=== PATIENT | female | born 1965 | race Caucasian/White ===

== ENCOUNTER 2016-12-19 16:06 | Inpatient (IN) | payer BC ==
[2016-12-19] VITALS (11 sets, daily range): BP systolic 100–128; BP diastolic 61–99; PULSE 66–159; RESP 14–24; TEMP 98–98.3; O2SAT 96–99
--- NOTE | 2016-12-19 16:23 | PD ---
HPI Chief Complaint: elevated heart rate Time Seen by Provider: 16:12 Travel History International Travel<30 days: No Contact w/Intl Traveler<30days: No History of Present Illness HPI 51-year-old female presents to the emergency department for evaluation of elevated heart rate. Patient reports she was diagnosed with atrial fibrillation approximately 2 months ago. She reports history of GA, A. fib, mechanical valve. She is currently metoprolol, Coumadin. Patient states that she went to [facility] yesterday. She was given dose of IV Cardizem and then discharged. However, her heart rate has increased again. Patient denies any chest pain or shortness breath. No headache. No fevers or chills. No abdominal pain. No nausea, vomiting, diarrhea. She states that she feels fine, just knows that her heart rate is increased. FORMERLY [facility], [facility] Social History Alcohol Use: No Tobacco Use: No Substance Use: No Allergies-Medications (Allergen,Severity, Reaction): Coded Allergies: No Known Allergies (Unverified , 12/19/16) Reported Meds & Prescriptions Reported Meds & Active Scripts Active Reported Bumetanide 1 Mg Tab 1 Mg PO MOWEDFRI Rythmol SR (Propafenone HCl) 225 Mg Cap 225 Mg PO Q12HR Metoprolol Tartrate 25 Mg Tab 25 Mg PO DAILY Coumadin (Warfarin) 5 Mg Tab 5 Mg PO MOWEDFRISAT Coumadin (Warfarin) 6 Mg Tab 6 Mg PO [place] Review of Systems Except as stated in HPI: all other systems reviewed are Neg Physical Exam Narrative GENERAL: Well-nourished, well-developed female patient, ambulatory. Afebrile SKIN: Focused skin assessment warm/dry. HEAD: Normocephalic. Atraumatic. EYES: No scleral icterus. No injection or drainage. NECK: Supple, trachea midline. No JVD or lymphadenopathy. CARDIOVASCULAR: Irregular rhythm, tachycardic, without murmurs, gallops, or rubs. Bilateral radial and pedal pulses are 2+. RESPIRATORY: Breath sounds equal bilaterally. No accessory muscle use. Lungs sounds are clear to auscultation GASTROINTESTINAL: Abdomen soft, non-tender, nondistended. MUSCULOSKELETAL: No cyanosis, or edema. BACK: Nontender without obvious deformity. No CVA tenderness. Data Data Last Documented VS Vital Signs Date Time Temp Pulse Resp B/P (MAP) Pulse Ox O2 Delivery O2 Flow Rate FiO2 12/19/16 18:07 82 22 106/72 (83) 97 Room Air 12/19/16 16:08 98.0 Orders Orders Electrocardiogram (12/19/16 ) Basic Metabolic Panel (Bmp) (12/19/16 16:18) Ckmb (Isoenzyme) Profile (12/19/16 16:18) Complete Blood Count With Diff (12/19/16 16:18) Magnesium (Mg) (12/19/16 16:18) Prothrombin Time / Inr (Pt) (12/19/16 16:18) Act Partial Throm Time (Ptt) (12/19/16 16:18) Troponin I (12/19/16 16:18) Ecg Monitoring (12/19/16 16:18) Bilateral Bp Monitoring (12/19/16 16:18) Iv Access Insert/Monitor (12/19/16 16:18) Oximetry (12/19/16 16:18) Oxygen Administration (12/19/16 16:18) Diltiazem Inj (Cardizem Inj) (12/19/16 16:45) Diltiazem Inj (Cardizem Inj) (12/19/16 17:00) Admit Order (Ed Use Only) (12/19/16 18:11) Labs Laboratory Tests Test 12/19/16 16:25 White Blood Count 7.6 TH/MM3 Red Blood Count 5.33 MIL/MM3 Hemoglobin 16.3 GM/DL Hematocrit 48.8 % Mean Corpuscular Volume 91.7 FL Mean Corpuscular Hemoglobin 30.6 PG Mean Corpuscular Hemoglobin Concent 33.4 % Red Cell Distribution Width 14.9 % Platelet Count 194 TH/MM3 Mean Platelet Volume 10.7 FL Neutrophils (%) (Auto) 70.3 % Lymphocytes (%) (Auto) 17.4 % Monocytes (%) (Auto) 9.8 % Eosinophils (%) (Auto) 1.4 % Basophils (%) (Auto) 1.1 % Neutrophils # (Auto) 5.4 TH/MM3 Lymphocytes # (Auto) 1.3 TH/MM3 Monocytes # (Auto) 0.7 TH/MM3 Eosinophils # (Auto) 0.1 TH/MM3 Basophils # (Auto) 0.1 TH/MM3 CBC Comment DIFF FINAL Differential Comment Prothrombin Time 36.9 SEC Prothromb Time International Ratio 3.2 RATIO Activated Partial Thromboplast Time 42.7 SEC Blood Urea Nitrogen 11 MG/DL Creatinine 0.86 MG/DL Random Glucose 92 MG/DL Calcium Level 9.0 MG/DL Magnesium Level 1.8 MG/DL Sodium Level 137 MEQ/L Potassium Level 3.8 MEQ/L Chloride Level 104 MEQ/L Carbon Dioxide Level 26.2 MEQ/L Anion Gap 7 MEQ/L Estimat Glomerular Filtration Rate 69 ML/MIN Total Creatine Kinase 93 U/L Troponin I 0.03 NG/ML [facility] Medical Decision Making Medical Screen Exam Complete: Yes Emergency Medical Condition: Yes Medical Record Reviewed: Yes Differential Diagnosis A. fib with RVR versus electrolyte abnormality versus ACS Narrative Course 51-year-old female presents to the emergency department for evaluation of elevated heart rate, history of A. fib. EKG shows atrial fibrillation, heart rate 145. No STEMI. CBC, BMP, CK, troponin, PTT, PT/INR are ordered and pending. CBC shows hemoglobin 16.3, hematocrit 48.8. CK is 93, troponin is 0.03. BMP shows no acute abnormality. PTT is 42.7. PTT is 36.9, INR is 3.2. Patient is given Cardizem 0.25 mg/kg. Patient's heart rate remains between 90 and 135. Patient started Cardizem drip at 2.[address] Dailey accepted admission. Diagnosis Primary Impression: Atrial fibrillation with RVR Admitting Information Admitting Physician Requests: Diane Marques Dec 19, 2016 16:23
[2016-12-19 16:36] LABS: AUTOMATED NEUTROPHIL # 5.4 TH/MM3 (1.8-7.7); BASOPHIL # 0.1 TH/MM3 (0-0.2); BASOPHIL % 1.1 % (0.0-2.0); EOSINOPHIL # 0.1 TH/MM3 (0-0.4); EOSINOPHIL % 1.4 % (0.0-4.0); HEMATOCRIT 48.8 % (35.0-46.0); HEMO FLAGS DIFF FINAL; LYMPH % 17.4 % (9.0-44.0); LYMPHOCYTE # 1.3 TH/MM3 (1.0-4.8); MEAN CELL VOLUME 91.7 FL (80.0-100.0); MEAN CORPUSCULAR HEMOGLOBIN 30.6 PG (27.0-34.0); MEAN CORPUSCULAR HGB CONC 33.4 % (32.0-36.0); MONO % 9.8 % (0.0-8.0); NEUT % 70.3 % (16.0-70.0); PLATELET COUNT 194 TH/MM3 (150-450); RED BLOOD COUNT 5.33 MIL/MM3 (4.00-5.30); RED CELL DISTRIBUTION WIDTH 14.9 % (11.6-17.2); WHITE BLOOD COUNT 7.6 TH/MM3 (4.0-11.0)
[2016-12-19] MEDS ORDERED: BUME1TAB PO (16:37)
[2016-12-19] MEDS ORDERED: COUM6TAB PO (16:37)
[2016-12-19] MEDS ORDERED: RYTH225C PO (16:37)
[2016-12-19] MEDS ORDERED: COUM5TAB PO (16:37)
[2016-12-19] MEDS ORDERED: METO25TA3 PO (16:37)
[2016-12-19 16:43] LABS: APTT (PATIENT) 42.7 SEC (24.3-30.1); INTERNATIONAL NORMALIZED RATIO 3.2 RATIO; PROTHROMBIN TIME - PATIENT 36.9 SEC (9.8-11.6)
[2016-12-19] MEDS ORDERED: DILTIAZEM HCL 25 MG/5 ML VIAL IV PUSH ONE (16:45)
[2016-12-19] MEDS ORDERED: DILTIAZEM INJ 125 MG in SODIUM CHLORIDE 0.9% INJ 100 ML IV PRN (17:00)
[2016-12-19 17:13] LABS: BICARBONATE 26.2 MEQ/L (21.0-32.0); MAGNESIUM 1.8 MG/DL (1.5-2.5); POTASSIUM 3.8 MEQ/L (3.5-5.1)
[2016-12-19] MEDS ORDERED: SODIUM CHLORIDE 0.9% FLUSH 10 ML FLUSH IV FLUSH PRN (18:45)
--- NOTE | 2016-12-19 18:56 | HHI.HP ---
HPI Service [facility] Primary Care Physician No Primary Care Physician Admission Diagnosis atrial fibrillation with RVR Diagnoses: Travel History International Travel<30 Days: No Contact w/Intl Traveler <30 Da: No Traveled to Known Affected Are: No History of Present Illness Patient 51-year-old female with a known history of atrial fibrillation diagnosed by her primary building architectural designer in [place] over the last 3 months. She was placed on Rythmol and also has a history of mechanical mitral valve including Coumadin. Patient is also on metoprolol. Family she went to the emergency room at [facility] yesterday was discharged from the ER after a dose of IV Cardizem. Her rate has been high all day and the patient came to the emergency room here for further evaluation. She notes no nausea or vomiting or chest pain and here for heart rates been in the 120s. EKG on my review shows atrial fibrillation without ischemic changes. Patient notes no fevers or chills. She is able to turn without difficulty. She does smoke quite a bit and her hemoglobin is high. Patient's been recommended for further treatment due to uncontrolled A. fib Review of Systems Constitutional: DENIES: Diaphoretic episodes, Fatigue, Fever, Weight gain, Weight loss, Chills, Dizziness, Change in appetite, Night Sweats Endocrine: DENIES: Abnorml menstrual pattern, Heat/cold intolerance, Polydipsia , Polyuria, Polyphagia Eyes: DENIES: Blurred vision, Diplopia, Eye inflammation, Eye pain, Vision loss , Photosensitivity, Double Vision Ears, nose, mouth, throat: DENIES: Tinnitus, Hearing loss, Vertigo, Nasal discharge, Oral lesions, Throat pain, Hoarseness, Ear Pain, Running Nose, Epistaxis, Sinus Pain, Toothache, Odynophagia Respiratory: DENIES: Apneas, Cough, Snoring, Wheezing, Hemoptysis, Sputum production, Shortness of breath Cardiovascular: DENIES: Chest pain, Palpitations, Syncope, Dyspnea on Exertion , PND, Lower Extremity Edema, Orthopnea, Claudication Gastrointestinal: DENIES: Abdominal pain, Black stools, Bloody stools, Constipation, Diarrhea, Nausea, Vomiting, Difficulty Swallowing, Anorexia Musculoskeletal: DENIES: Joint pain, Muscle aches, Stiffness, Joint Swelling, Back pain, Neck pain Integumentary: DENIES: Abnormal pigmentation, Pruritus, Rash, Nail changes, Breast masses, Breast skin changes, Nipple discharge Hematologic/lymphatic: DENIES: Bruising, Lymphadenopathy Immunologic/allergic: DENIES: Eczema, Urticaria Neurologic: DENIES: Abnormal gait, Headache, Localized weakness, Paresthesias, Seizures, Speech Problems, Tremor, Poor Balance Psychiatric: DENIES: Anxiety, Confusion, Mood changes, Depression, Hallucinations, Agitation, Suicidal Ideation, Homicidal Ideation, Delusions Except as stated in HPI: all other systems reviewed are Neg Past Family Social History Past Medical History Tobacco dependency Atrial fibrillation Past Surgical History Mechanical mitral valve Reported Medications Reviewed in the EMR, Cardizem started yesterday Allergies: Coded Allergies: No Known Allergies (Unverified , 12/19/16) Active Ordered Medications reviewed in the EMR Family History Mother had a heart attack and stents Social History Patient smokes at least a 1/2 pack a day, no alcohol dependency, visiting from [place] with her friends Physical Exam Vital Signs Vital Signs Date Time Temp Pulse Resp B/P (MAP) Pulse Ox O2 Delivery O2 Flow Rate FiO2 12/19/16 18:07 82 22 106/72 (83) 97 Room Air 12/19/16 17:35 119 100/61 12/19/16 17:32 119 17 100/61 (74) 98 Room Air 12/19/16 17:21 126 121/67 12/19/16 16:59 88 15 121/67 (85) 98 Room Air 12/19/16 16:29 148 24 128/95 (106) 98 Room Air 12/19/16 16:21 106 16 128/95 (106) 98 12/19/16 16:08 98.0 159 14 122/99 (107) 99 Physical Exam GENERAL: This is a well-nourished, well-developed patient, palpations, appears older than stated age SKIN: No rashes, ecchymoses or lesions. Cool and dry. HEAD: Atraumatic. Normocephalic. No temporal or scalp tenderness. EYES: Pupils equal round and reactive. Extraocular motions intact. No scleral icterus. No injection or drainage. ENT: Nose without bleeding, purulent drainage or septal hematoma. Throat without erythema, tonsillar hypertrophy or exudate. Uvula midline. Airway patent. NECK: Trachea midline. No JVD or lymphadenopathy. Supple, nontender, no meningeal signs. CARDIOVASCULAR: Atrial fibrillation with rapid rate in the 120s otherwise without murmurs, gallops, or rubs. RESPIRATORY: Clear to auscultation. Breath sounds equal bilaterally. No wheezes , rales, or rhonchi. GASTROINTESTINAL: Abdomen soft, non-tender, nondistended. No hepato-splenomegaly , or palpable masses. No guarding. MUSCULOSKELETAL: Extremities without clubbing, cyanosis, or edema. No joint tenderness, effusion, or edema noted. No calf tenderness. Negative Homans sign bilaterally. NEUROLOGICAL: Awake and alert. Cranial nerves II through XII intact. Motor and sensory grossly within normal limits. Five out of 5 muscle strength in all muscle groups. Normal speech. Laboratory Laboratory Tests Test 12/19/16 16:25 White Blood Count 7.6 Red Blood Count 5.33 Hemoglobin 16.3 Hematocrit 48.8 Mean Corpuscular Volume 91.7 Mean Corpuscular Hemoglobin 30.6 Mean Corpuscular Hemoglobin Concent 33.4 Red Cell Distribution Width 14.9 Platelet Count 194 Mean Platelet Volume 10.7 Neutrophils (%) (Auto) 70.3 Lymphocytes (%) (Auto) 17.4 Monocytes (%) (Auto) 9.8 Eosinophils (%) (Auto) 1.4 Basophils (%) (Auto) 1.1 Neutrophils # (Auto) 5.4 Lymphocytes # (Auto) 1.3 Monocytes # (Auto) 0.7 Eosinophils # (Auto) 0.1 Basophils # (Auto) 0.1 CBC Comment DIFF FINAL Differential Comment Prothrombin Time 36.9 Prothromb Time International Ratio 3.2 Activated Partial Thromboplast Time 42.7 Blood Urea Nitrogen 11 Creatinine 0.86 Random Glucose 92 Calcium Level 9.0 Magnesium Level 1.8 Sodium Level 137 Potassium Level 3.8 Chloride Level 104 Carbon Dioxide Level 26.2 Anion Gap 7 Estimat Glomerular Filtration Rate 69 Total Creatine Kinase 93 Troponin I 0.03 Result Diagram: 12/19/16 1625 12/19/161624 Caprini VTE Risk Assessment Caprini VTE Risk Assessment: Mod/High Risk (score >= 2) Caprini Risk Assessment Model Point Value = 1 Point Value = 2 Point Value = 3 Point Value = 5 Age 41-60 Minor surgery BMI > 25 kg/m2 Swollen legs Varicose veins or History of unexplained or recurrent spontaneous Oral contraceptives or hormone replacement Sepsis (< 1 month) Serious lung disease, including pneumonia (< 1 month) Abnormal pulmonary function Acute myocardial infarction Congestive heart failure (< 1 month) History of inflammatory bowel disease Medical patient at bed rest Age 61-74 Arthroscopic surgery Major open surgery (> 45 min) Laparoscopic surgery (> 45 min) Malignancy Confined to bed (> 72 hours) Immobilizing plaster cast Central venous access Age >= 75 History of VTE Family history of VTE Factor V Leiden Prothrombin [id number] Lupus anticoagulant Anticardiolipin antibodies Elevated serum homocysteine Heparin-induced thrombocytopenia Other congenital or acquired thrombophilia Stroke (< 1 month) Elective arthroplasty Hip, pelvis, or leg fracture Acute spinal cord injury (< 1 month) Prophylaxis Regimen Total Risk Factor Score Risk Level Prophylaxis Regimen 0-1 Low Early ambulation 2 Moderate Order ONE of the following: *Sequential Compression Device (SCD) *Heparin 5000 units SQ BID 3-4 Higher Order ONE of the following medications: *Heparin 5000 units SQ TID *Enoxaparin/Lovenox 40 mg SQ daily (WT < 150 kg, CrCl > 30 mL/min) *Enoxaparin/Lovenox 30 mg SQ daily (WT < 150 kg, CrCl > 10-29 mL/min) *Enoxaparin/Lovenox 30 mg SQ BID (WT < 150 kg, CrCl > 30 mL/min) AND/OR *Sequential Compression Device (SCD) 5 or more Highest Order ONE of the following medications: *Heparin 5000 units SQ TID (Preferred with Epidurals) *Enoxaparin/Lovenox 40 mg SQ daily (WT < 150 kg, CrCl > 30 mL/min) *Enoxaparin/Lovenox 30 mg SQ daily (WT < 150 kg, CrCl > 10-29 mL/min) *Enoxaparin/Lovenox 30 mg SQ BID (WT < 150 kg, CrCl > 30 mL/min) AND *Sequential Compression Device (SCD) Assessment and Plan Problem List: (1) Atrial fibrillation with RVR ICD Code: I48.91 - Unspecified atrial fibrillation Status: Acute Plan: Patient on Rythmol and metoprolol which we will continue With a history of mitral valve replacement and is on Coumadin Add Cardizem Cardiology to see The pulmonary related given the patient's extensive tobacco history and elevated hemoglobin Blood gas and chest x-ray pending Drug screen pending (2) Tobacco dependence ICD Code: F17.200 - Nicotine dependence, unspecified, uncomplicated Plan: Continue with nicotine patch as needed Cessation encouraged Assessment and Plan Plan of care to be determined by Hospital course Code Status Full code Discussed Condition With PETE Sahu, patient Physician Certification 2 Midnight Certification Type: Admission for Inpatient Services Order for Inpatient Services The services are ordered in accordance with Medicare regulations or non- Medicare payer requirements, as applicable. In the case of services not specified as inpatient-only, they are appropriately provided as inpatient services in accordance with the 2-midnight benchmark. Estimated LOS (days): 2 2 days is the estimated time the patient will need to remain in the hospital, assuming treatment plan goals are met and no additional complications. Post-Hospital Plan: Sarah Mora MD Dec 19, 2016 18:56
[2016-12-19] MEDS ORDERED: NICOTINE 14 MG/24 HR PATCH T-DERMAL PRN (19:00)
--- NOTE | 2016-12-19 19:18 | RADRPT ---
EXAM DATE/TIME: 12/19/2016 19:04 [facility] COMPARISON: No previous studies available for comparison. INDICATIONS : Heart Palpitations MEDICAL HISTORY : Myocardial infarction. Cardiovascular disease. SURGICAL HISTORY : CABG. ENCOUNTER: Initial ACUITY: 1 day PAIN SCORE: 4/10 LOCATION: Bilateral chest FINDINGS: PA and lateral views of the chest demonstrate a normal-sized cardiac silhouette. There is no effusion , consolidation, or pneumothorax. The bones and soft tissues demonstrate no acute abnormality. Median sternotomy wires are present. CONCLUSION: No acute cardiopulmonary abnormality is identified. Gerard Grider MD on December 19, 2016 at 19:15 Board Certified Radiologist. This report was verified electronically.
[2016-12-19 19:19] LABS: BLOOD GAS BASE EXCESS 2.4 mmol/L (-2-2); BLOOD GAS CARBOXYHEMOGLOBIN 1.4 % (0-4); BLOOD GAS HCO3 26 mmol/L (22-26); BLOOD GAS METHEMOGLOBIN 0.6 % (0-2); BLOOD GAS O2 HGB SATURATION 95 % (90-100); BLOOD GAS OXYGEN CONTENT 21.1 Vol % (12.0-20.0); BLOOD GAS PCO2 37 mmHg (38-42); BLOOD GAS PO2 80 mmHG (61-120); BLOOD GAS TOTAL HGB 15.8 G/DL (12.0-16.0); CRITICAL VALUE NO; DRAW SITE RT RADIAL; FIO2 21 %; NUMBER OF ARTERIAL PUNCTURES 1; OXYGEN DEVICE ROOM AIR; STAT YES; TEMP CORR TO 98.6; ULNAR PULSE PRESENT
[2016-12-19] MEDS ORDERED: PROPAFENONE 225 MG PO SCH (21:00)
[2016-12-19] MEDS: SODIUM CHLORIDE 0.9% FLUSH 10 ML FLUSH IV FLUSH SCH (21:56)
[2016-12-20] VITALS (12 sets, daily range): BP systolic 114–128; BP diastolic 71–84; PULSE 65–96; RESP 16–18; TEMP 97.8–98.9; O2SAT 95–97
[2016-12-20 05:50] LABS: INTERNATIONAL NORMALIZED RATIO 2.7 RATIO; PROTHROMBIN TIME - PATIENT 31.5 SEC (9.8-11.6)
--- NOTE | 2016-12-20 07:29 | HHI.PR ---
Subjective Remarks Appear in nad. Patient denies any chest pain or sob. No n/v/d/c. HR is better controlled. Off drip Objective Vitals Vital Signs Date Time Temp Pulse Resp B/P (MAP) Pulse Ox O2 Delivery O2 Flow Rate FiO2 12/20/16 06:00 70 12/20/16 05:00 65 12/20/16 05:00 65 112/66 12/20/16 04:00 66 12/20/16 04:00 98.0 66 18 128/77 (94) 97 12/20/16 04:00 66 128/77 12/20/16 03:00 69 12/20/16 03:00 69 146/77 12/20/16 02:00 72 12/20/16 02:00 72 128/78 12/20/16 01:00 76 12/20/16 01:00 76 122/76 12/20/16 00:00 98.0 82 18 122/77 (92) 97 12/20/16 00:00 82 122/77 12/20/16 00:00 82 12/19/16 23:30 112 12/19/16 23:00 66 12/19/16 23:00 66 139/78 12/19/16 22:48 60 12/19/16 22:26 12/19/16 22:15 66 12/19/16 22:14 86 12/19/16 22:14 98.3 86 18 112/84 (93) 97 12/19/16 22:14 86 112/84 12/19/16 21:40 94 16 114/71 (85) 96 Room Air 12/19/16 19:49 91 16 111/85 (94) 98 Room Air 12/19/16 18:50 98 117/75 12/19/16 18:49 125 21 117/75 (89) 99 Room Air 12/19/16 18:07 82 22 106/72 (83) 97 Room Air 12/19/16 17:35 119 100/61 12/19/16 17:32 119 17 100/61 (74) 98 Room Air 12/19/16 17:21 126 121/67 12/19/16 16:59 88 15 121/67 (85) 98 Room Air 12/19/16 16:29 148 24 128/95 (106) 98 Room Air 12/19/16 16:21 106 16 128/95 (106) 98 12/19/16 16:08 98.0 159 14 122/99 (107) 99 I/O 12/19/16 12/19/16 12/19/16 12/20/16 12/20/16 12/20/16 07:00 15:00 23:00 07:00 15:00 23:00 Intake Total 10.0 ml 270 ml Balance 10.0 ml 270 ml Intake Oral 240 ml IV Total 10.0 ml 30 ml # Voids 2 Result Diagram: 12/19/16 1625 12/19/16 1625 Imaging Last Impressions Chest X-Ray 12/19/16 0000 Signed Impressions: Service Date/Time: Monday, December 19, 2016 19:04 - CONCLUSION: No acute cardiopulmonary abnormality is identified. Gerard Grider MD Objective Remarks GENERAL: This is a well-nourished, well-developed patient, palpations, appears older than stated age NECK: Trachea midline. No JVD or lymphadenopathy. Supple, nontender, no meningeal signs. CARDIOVASCULAR: Irregularly irregular rhythms, otherwise without murmurs, gallops, or rubs. RESPIRATORY: Clear to auscultation. Breath sounds equal bilaterally. No wheezes , rales, or rhonchi. GASTROINTESTINAL: Abdomen soft, non-tender, nondistended. No hepato-splenomegaly , or palpable masses. No guarding. MUSCULOSKELETAL: Extremities without clubbing, cyanosis, or edema. No joint tenderness, effusion, or edema noted. No calf tenderness. Negative Homans sign bilaterally. NEUROLOGICAL: Awake and alert. Cranial nerves II through XII intact. Motor and sensory grossly within normal limits. Five out of 5 muscle strength in all muscle groups. Normal speech. A/P Problem List: (1) Atrial fibrillation with RVR ICD Code: I48.91 - Unspecified atrial fibrillation Status: Acute (2) Tobacco dependence ICD Code: F17.200 - Nicotine dependence, unspecified, uncomplicated Assessment and Plan Atrial fibrillation with RVR Patient on Rythmol and metoprolol which we will continue With a history of mitral valve replacement and is on Coumadin Received Cardizem drip, now off cardizem drip. Cardiology consulted, appreciate recommendations. The pulmonary related given the patient's extensive tobacco history and elevated hemoglobin Blood gas and chest x-ray pending reviewed no significant findings Drug screen positive for cannabis. Tobacco dependence Continue with nicotine patch as needed Cessation encouraged Discussed Condition With Patient, nurse Discharge Planning DC home in stable condition to follow up as OP with PCP and her cardiology doctor. Safe to fly per cardiology. Meds per med reconciliations. Diet healthy heart diet Activity ad taryn as tolerated Nighat Martinez MD Dec 20, 2016 07:29
[2016-12-20] MEDS ORDERED: METO25TA3 PO (08:35)
--- NOTE | 2016-12-20 08:36 | HHI.DCPOC ---
Discharge Care Plan Goals to Promote Your Health * To prevent worsening of your condition and complications * To maintain your health at the optimal level Directions to Meet Your Goals Take your medications as prescribed Follow your dietary instruction Follow activity as directed Keep your appointments as scheduled Take your immunizations and boosters as scheduled If your symptoms worsen call your PCP, if no PCP go to Urgent Care Center or Emergency Room Smoking is Dangerous to Your Health. Avoid second hand smoke Call the 24-hour hour crisis hotline for domestic abuse at Nighat Martinez MD Dec 20, 2016 08:36
[2016-12-20] MEDS ORDERED: METOPROLOL TARTRATE 50 MG TAB PO SCH ×2 (09:00→21:00)
[2016-12-20] MEDS ORDERED: METOPROLOL TARTRATE 25 MG TAB PO SCH (09:00)
[2016-12-20] MEDS ORDERED: BUMETANIDE 1 MG TAB PO SCH (09:00)
[2016-12-20] MEDS: SODIUM CHLORIDE 0.9% FLUSH 10 ML FLUSH IV FLUSH SCH (09:00)
[2016-12-20] MEDS ORDERED: DIGOXIN 0.125 MG TAB PO SCH (10:45)
[2016-12-20] MEDS ORDERED: DIGOXIN 0.5 MG/2 ML VIAL IV PUSH ONE (11:00)
--- NOTE | 2016-12-20 11:58 | MB ---
cc: ANGELA HUSSEIN MD DATE OF CONSULTATION: 12/20/2016 REASON FOR CONSULTATION: Atrial fibrillation HISTORY OF PRESENT ILLNESS: The patient is a 51-year-old female. She has history of atrial fibrillation followed by [facility] in [place]. She was diagnosed about 3 months ago. She was initially placed on Rythmol and anticoagulation, in addition to metoprolol. She presented to the emergency department with rapid ventricular rate. She had recently been seen at [facility] for similar type presentation, given IV Cardizem. Electrocardiogram upon arrival showed heart rates in 120 to 130 beats per minute range. Over the course of the evening she was started on Cardizem drip. Heart rates are now well controlled. Cardizem drip has been discontinued. Heart rate still fairly well-controlled. Discharge orders have been written. We are consulted for further recommendations prior to discharge in anticipation of her travels back to [place] tomorrow. PAST MEDICAL HISTORY: 1. Atrial fibrillation 2. Mitral valve replacement 3. Mechanical mitral valve. ALLERGIES NO KNOWN DRUG ALLERGIES. FAMILY HISTORY Noncontributory. No cardiac disease or sudden cardiac . SOCIAL HISTORY: She smokes half-pack per day. No alcohol use. Denies any drug use. REVIEW OF SYSTEMS: 12-point review of systems was performed, negative otherwise as in the history of present illness. Electrocardiogram: Atrial fibrillation, rapid ventricular rate, nonspecific ST-T wave changes, incomplete left bundle-branch block. PHYSICAL EXAMINATION: VITAL SIGNS: Temperature 97, pulse 82, blood pressure 98/77 mmHg. General: Alert and oriented x3 in no distress. HEENT: Exam shows pupils reactive to light and accommodation. Extraocular movements intact. There is no elevation in jugular venous distention. No thyromegaly, lymphadenopathy. No carotid bruits. Lungs: Clear to auscultation bilaterally. Cardiovascular: Irregularly irregular rhythm. 2/6 systolic murmur. No rubs or gallops. Abdomen: Non-tender, non-distended. Good bowel sounds. No hepatosplenomegaly. Extremities: No clubbing, cyanosis or edema. Good peripheral pulses. Neuro: Cranial nerves intact. Motor, sensory grossly intact. ASSESSMENT 1. Atrial fibrillation 2. Mechanical mitral valve replacement. PLAN The patient has periodic rapid ventricular rate. It looks like she is in persistent atrial fibrillation, likely secondary to her mitral valve disease. She is on anticoagulation for her valve. We just need to optimize her medical regimen. She is hypotensive, states that she typically takes only 25 milligrams of metoprolol, here we have 50 milligrams twice daily. I am a little nervous that that is going to drop her pressure too much. We will go ahead and send her on 25 milligrams twice a day metoprolol, but add digoxin. She will continue with the anticoagulant. She is safe to fly for tomorrow and she can follow up with her [facility] for any further recommendations. MD YAW Hudson/ARTHUR /10:53 AM /11:51 AM
--- NOTE | 2016-12-20 13:15 | EKG ---
Date Performed: 12/19/2016 Time Performed: 16:22:10 PTAGE: 51 years EKG: ATRIAL FIBRILLATION WITH RAPID VENTRICULAR RESPONSE INTRAVENTRICULAR CONDUCTION DISTURBANCE PROBABLE LVH FOR DIFFUSED ST-T CHANGES, WHICH MAY BE DUE TO LVH POOR INITIAL ANTERIOR FORCES IN V1 A ND V2 Clinical correlation and follow-up tracings recommended. NO PREVIOUS TRACING DOCTOR: Ryan Dickson Interpretating Date/Time 12/20/2016 13:14:08
[2016-12-20] MEDS ORDERED: WARFARIN SOD 6 MG TAB PO SCH (16:00)
[2016-12-21] MEDS ORDERED: DIGOXIN 0.125 MG TAB PO SCH (09:00)
== END 2016-12-20 11:45 | disposition home or self-care (01) | DRG 310 ==
LOC: NEPE 16:06 → NEDA 18:13 → OBSVTOIN 18:46 → HCPC 22:08
PROVIDERS: ADMIT Hospitalist; ATTEND Hospitalist
DX: I48.1 Persistent atrial fibrillation (principal); Z95.2 Presence of prosthetic heart valve; Z95.1 Presence of aortocoronary bypass graft; F17.210 Nicotine dependence, cigarettes, uncomplicated; I05.9 Rheumatic mitral valve disease, unspecified; Z79.01 Long term (current) use of anticoagulants; I25.2 Old myocardial infarction
CPT/HCPCS: 36600; 71020; 80048; 80307; 82550; 82805; 83735; 84443; 84484; 85025; 85610; 85730; 93005; 96374; 96375; J1160